=== PATIENT | male | born 1995 | race Caucasian/White ===

== ENCOUNTER 2018-11-21 00:22 | Emergency (ER) | payer MEDICAID, OTHER ==
[~2018-11-21] VITALS: Ht 167.6 cm; Wt 73.0 kg
[2018-11-21] MEDS ORDERED: ALBUTEROL SULF8.5 GM INH ×2 (00:28→01:39)
[2018-11-21 00:38] VITALS: BP 121/71
--- NOTE | 2018-11-21 00:40 | NUR ---
ER Nurse Note: Pt came from home c/o cough. Per pt; pt ran out of his albuterol 11/20 and is having dry cough. Pt has hx of asthma. Lung sounds with slight wheezes, no complains of shortness of breath. Cough is dry, no phlegm. Pt a&ox4, VSS, no distress. ERMD at pt side, will continue to montior.
[2018-11-21] MEDS ORDERED: Ipratropium 0.02% Inh Soln 2.5ml UD HHN ONE (00:45)
[2018-11-21] MEDS ORDERED: Albuterol ud Inhalation HHN ONE (00:45)
--- NOTE | 2018-11-21 01:18 | Emergency Room Report ---
History of Present Illness General Chief Complaint: Upper Respiratory Illness Source: Patient Present Illness HPI Patient presents with reports and complaints that his asthma has been exacerbated Patient reports that recently with the weather and the wind also causing increased allergy He has been coughing over the past several days Denies any chest pain and eyes any vomiting or diarrhea he does feel short of breath with increased cough Denies any neck pain or photophobia denies any recent travel Allergies: Coded Allergies: No Known Allergies (Unverified , 11/21/18) Patient History Past Medical History: see triage record Pertinent Family History: none Reviewed Nursing Documentation: PMH: Agreed; PSxH: Agreed Nursing Documentation-PMH Hx Asthma: Yes Review of Systems All Other Systems: negative except mentioned in HPI Physical Exam Vital Signs Date Time Temp Pulse Resp B/P (MAP) Pulse Ox O2 Delivery O2 Flow Rate FiO2 11/21/18 00:25 98.8 70 18 121/71 93 Room Air 11/21/18 00:44 21 Sp02 EP Interpretation: reviewed, normal General Appearance: well appearing, no apparent distress Head: normocephalic, atraumatic Eyes: bilateral eye PERRL, bilateral eye EOMI ENT: normal pharynx, no angioedema Neck: supple Respiratory: no respiratory distress, no retraction, no accessory muscle use, wheezing - Bilaterally Cardiovascular #1: regular rate, rhythm, no edema Gastrointestinal: non tender, soft Musculoskeletal: normal inspection Neurologic: alert, oriented x3 Skin: normal color, no rash Lymphatic: no adenopathy Medical Decision Making Diagnostic Impression: Primary Impression: Asthma exacerbation ER Course Given the patient's history and presentation initial respiratory treatment is initiated Patient does have wheezing however moves air appropriately no obvious retractions I did not feel x-ray imaging was emergently indicated patient also receiving steroids orally And is improved for close outpatient follow-up Last Vital Signs Date Time Temp Pulse Resp B/P (MAP) Pulse Ox O2 Delivery O2 Flow Rate FiO2 11/21/18 00:45 59 16 98 Room Air 21 11/21/18 00:38 98.8 121/71 Status: improved Disposition: HOME, SELF-CARE Condition: Improved Scripts Methylprednisolone (Methylprednisolone*) 4MG Dspk 4 MG ORAL DIRECTED for 6 Days, #21 EA 0 Refills Day 1: Two tablets before breakfast, one after lunch, one after dinner, and two at bedtime. If started late in the day, take all six tablets at once or divide into two or three doses, unless otherwise directed by prescriber. Day 2: One tablet before breakfast, one after lunch, one after dinner, and two at bedtime Day 3: One tablet before breakfast, one after lunch, one after dinner, and one at bedtime Day 4: One tablet before breakfast, one after lunch, and one at bedtime Day 5: One tablet before breakfast and one at bedtime Day 6: One tablet before breakfast Prov: Marko Spring DO 11/21/18 Albuterol Sulfate* (ALBUTEROL SULFATE MDI*) 8.5 Gm Hfa.aer.ad 2 PUFF INH Q4H PRN for cough/wheezing, #2 EA 0 Refills Prov: Marko Spring DO 11/21/18 Additional Instructions: Patient is provided with the discharge instructions notified to follow up with primary doctor in the next 2-3 days otherwise return to the er with any worsening symptoms. Please note that this report is being documented using DRAGON technology. This can lead to erroneous entry secondary to incorrect interpretation by the dictating instrument. Marko Spring DO Nov 21, 2018 01:18
--- NOTE | 2018-11-21 01:22 | NUR ---
ER Nurse Note: Pt completed breathing treatment with RT. No complains of shortness of breath, lung sounds clear. Will continue to montior.
[2018-11-21] MEDS ORDERED: MEDROL DOSEPAK4 MG ORAL (01:39)
[2018-11-21 01:44] VITALS: BP 121/71
--- NOTE | 2018-11-21 01:45 | NUR ---
ER Nurse Note: Pt seen, treated, medically cleared for discharge by ERMD. Discharge instructions and prescriptions given with repeat verbalization by pt. Instructed pt to follow up with primary care physcian within one week. Pt a&ox4, VSS, no signs of respiratory distress. ID band removed. Pt left with all belongings with steady gait via own transportation.
== END 2018-11-21 01:45 | disposition home or self-care (01) ==
LOC: EMR 00:38
DX: J45.901 Unspecified asthma with (acute) exacerbation (principal)
CPT/HCPCS: 94640; 94664; 99284; J7512